=== PATIENT | female | born 1965 | race Caucasian/White ===

== ENCOUNTER 2016-07-07 11:27 | Emergency (ER) ==
[2016-07-07] MEDS ORDERED: DECADRON IM ONE (12:46)
--- NOTE | 2016-07-07 12:52 | PROVIDER DOCUMENTATION ---
HPI-Musculoskeletal Pain/Inj - GENERAL Chief Complaint: Extremity Pain Stated Complaint: NUMBNESS LEG Time Seen by Provider: 07/07/16 11:38 Source: patient - HX OF PRESENT ILLNESS-MUSKULOSKELTAL Nature of Presenting Problem: This pt, who has a hx of scoliosis and multilevel DDD, presents today c complaints of worsening low back pain and LLE numbness after a fall 2 days ago. She is currently seeing Dr. Stanley Kilpatrick in [place] and is scheduled for surgical repair of several lumbar spine problems. She states that she is still ambulating and denies any bowel or bladder dysfunction. She states that she just became concerned because the "tingling" feels a little "worse than usual." No other issues or complaints. Quality of Pain: reports: aching Severity in ED: moderate Onset/Duration: other (see hpi) Timing: still present Modifying Factors: improves with: movement Any recent injury?: Yes Similar Symptoms Previously?: Yes Recently seen or treated by another doctor?: Yes Review of Systems - Adult - REVIEW OF SYSTEMS - ADULT Constitutional: reports: no symptoms reported. denies: chills, fever Eyes: reports: no symptoms reported. denies: discharge, dry eyes Ears, Nose, Mouth & Throat: reports: no symptoms reported. denies: ear discharge, ear pain Cardiovascular: reports: no symptoms reported. denies: chest pain, edema Respiratory: reports: no symptoms reported. denies: chronic cough, cough Gastrointestinal: reports: no symptoms reported. denies: abdominal pain, hematemesis Genitourinary: reports: no symptoms reported. denies: dysuria, discharge Musculoskeletal: reports: see HPI, muscle aches. denies: bone pain, back pain Integumentary: reports: no symptoms reported. denies: hives, hair loss Neurological: reports: no symptoms reported. denies: ataxia, dizziness/vertigo Psychiatric: reports: no symptoms reported. denies: anxiety, anti-depressant use Endocrine: reports: no symptoms reported Hematologic/Lymphatic: reports: no symptoms reported Allergic/Immunologic: reports: no symptoms reported All Other Systems: Reviewed and Negative Past History - Adult - PAST MEDICAL HISTORY-ADULT Review of Records: reports: Old Records Reviewed, Nursing Assessment Review, Medications Reviewed, Social history reviewed & non-contributory. Major Childhood Illnesses: reports: denies history Cardiovascular: reports: palpitations Respiratory: reports: denies history Gastrointestinal: reports: denies history Obstetrical/Gynecological: reports: denies history Genitourinary: reports: denies history Musculoskeletal: reports: chronic pain, other (see hpi) Neurological: reports: denies history Endocrine/Immune: reports: denies history Other Conditions: reports: denies history - PRIOR SURGERIES/PROCEDURES Surgical/Procedure History: reports: hysterectomy - IMMUNIZATION STATUS Childhood Immunizations: See Nurse Assessment Flu Vaccine: See Nurse Assessment Physical Exam-Injury Related - Physical Exam-Injury Related Initial Vital Signs Reviewed: Yes General Appearance: appears well, alert, no apparent distress Eyes: PERRL/EOMI, pink conjunctivae Head, Ears, Nose, Mouth & Throat: normocephalic/atraumatic, normal ENT inspection, TMs normal, pharynx normal Neck: non-tender, full range of motion, supple, normal inspection Respiratory: chest non-tender, lungs clear, normal breath sounds, no pleuratic chest pain, no respiratory distress, no accessory muscle use Cardiovascular: normal peripheral pulses, regular rate, rhythm, no edema, no gallop, no JVD, no murmur Abdominal Exam: normal bowel sounds, non tender, soft, no organomegaly, no pulsatile mass Lymphatic: no adenopathy Back Exam: normal inspection, no vertebral tenderness, scoliosis, vertebral tenderness (lumbar) Extremity: normal range of motion, non-tender, normal gait, normal inspection, no pedal edema, no calf tenderness, normal capillary refill, pelvis stable Integumentary: normal color, warm/dry Neurologic: division order technician II-XII nml as tested, no motor/sensory deficits Psych/Mental Status: AL, normal mood/affect, normal thought content, normal thought process, oriented x 3 Progress - PLAN OF CARE/RESULTS Progress/Plan/Lab Results: Orders Category Date Time Status LUMBAR SPINE W/O CONTRAST [CT] Stat Exams 07/07/16 11:47 Taken XRAY PELVIS W/HIP 2-3VW LT [RAD] Stat Exams 07/07/16 11:47 Taken Dexamethasone [Decadron] Med 07/07/16 12:46 Discontinued 10 mg IM NOW ONE Vital Signs Temp Pulse Resp BP Pulse Ox 07/07/16 11:31 97.6 F 58 L 20 137/88 99 Sulfa (Sulfonamide Antibiotics) Allergy (Unknown, Verified 07/07/16 12:15) Unknown was told by mother she was allergic acetaminophen [From Lortab] Adverse Reaction (Mild, Verified 07/07/16 12:15) Unknown DOES NOT HELP CAN'T SLEEP hydrocodone bitartrate * [From Lortab] Adverse Reaction (Mild, Verified 12:15) Unknown DOES NOT HELP CAN'T SLEEP Baclofen [Lioresal] 10 mg PO QHS #0 tablet 03/05/12 Clonazepam [Klonopin] 0.5 mg PO BID #0 tab.rapdis 03/05/12 Tramadol HCl 50 mg PO BID PRN #0 tablet 03/05/12 Metoprolol Succinate E.r. [Toprol Xl] 50 mg PO DAILY #30 tablet 09/19/15 Tapentadol HCl [Nucynta] 50 mg PO DAILY 07/07/16 Will have pt f/u c Dr. Angel as scheduled. She is in agreement c this plan. - XRAY 1 XRAY: Left XRAY Study: Pelvis, Hip XRAY Interpretation: nad - CT/MRI 1 CT Study: Lumbar Spine Comparison with other Films: no changes (since 2014) CT Results: scoliosis and severe multilevel DDD; no acute findings Departure - Departure Time of Disposition Order: 12:50 DIAGNOSIS: Scoliosis Qualifiers: Scoliosis type: unspecified scoliosis Spinal region: lumbar Qualified Code(s): M41.9 - Scoliosis, unspecified Chronic low back pain with left-sided sciatica Qualifiers: Back pain laterality: left Qualified Code(s): M54.42 - Lumbago with sciatica, left side; G89.29 - Other chronic pain Disposition: HOME 01 Certified Medical Emergency: Emergent Condition: Good Additional Instructions: Take medication as prescribed. Follow up with Dr. Angel as scheduled. ED Follow Up Instructions: You have been treated by a care provider in the Emergency Department. These instructions are being provided to you so you can have an understanding of how to care for yourself upon discharge. Upon discharge from the Emergency Department, you are responsible for making arrangements for follow-up care by a physician of your choice. Take all prescribed medications as directed. Return to the Emergency Department immediately for any new or worsening symptoms. You may call the Physician Referral phone number at [phone] to obtain a list of Physicians who are taking new patients. Prescriptions: Cyclobenzaprine [Flexeril] 10 mg PO TID #20 tablet Referrals: Parminder Victor MD [Primary Care Provider] - Sebas Angel [NON-STAFF] - Attestation - Physician/ Mid-level Attestation Patient care was provided by Mid-level provider (WARP CLAMPER/PA):: Yes Mid-level provider:: Joni Srivastava Mid-level documentation review:: The Mid-level provider documentation, treatment plan and medical decision making was reviewed by the physician who agrees with all treatment and medical decision making by the MLP.
[2016-07-07 13:02] VITALS: BP 141/71
--- NOTE | 2016-07-07 13:26 | Diag Imaging Result Document ---
PROCEDURE NAME: LUMBAR SPINE W/O CONTRAST - 07/07/2016 CT LUMBAR SPINE WITHOUT CONTRAST: COMPARISON: Plain radiograph of the lumbar spine dated 06/06/2016 and MRI lumbar spine dated 05/16/2015. No prior lumbar spine CT is available for comparison. FINDINGS: Levoscoliosis is noted like the previous studies. There is loss of disk space height from L1-2 through L4-5. There is vacuum disk phenomenon at L3-4 and L4-5. There is extensive endplate degenerative sclerosis at L2-3 on the right where there is the most significant loss of disk space. There is facet arthropathy at several levels, most significant at L5-S1. There are bulging disk osteophyte complexes at several levels that are causing various degrees of central canal and neural foraminal narrowing. This appears to be most significant at L4-5 where there is severe central spinal stenosis. There is at least moderate central spinal stenosis at L3-4. However, these levels appear to be approximately stable as compared to the previous MRI in 2014. There is no evidence of fracture, subluxation, or intrinsic osseous lesion, otherwise. Surrounding soft tissues are essentially unremarkable. IMPRESSION: 1. Scoliosis and extensive degenerative change throughout the lumbar spine as detailed above that appears to be most significant at L4-5 where there is severe central spinal stenosis. However, these levels are very similar to the prior MRI in 2014. 2. No evidence of fracture or definite acute L-spine injury, otherwise.
--- NOTE | 2016-07-07 14:03 | Diag Imaging Result Document ---
PROCEDURE NAME: XRAY PELVIS W/HIP 2-3VW LT - 07/07/2016 PLAIN RADIOGRAPH OF THE PELVIS AND LEFT HIP, 2 VIEWS: COMPARISON: None available. FINDINGS: There is no discrete fracture, dislocation, or intrinsic osseous lesion. The visualized joint spaces are essentially unremarkable. The surrounding soft tissues are grossly unremarkable. IMPRESSION: No evidence of acute osseous abnormality.
== END 2016-07-07 13:10 | disposition home or self-care (01) ==
LOC: ED 11:27
DX: M54.42 Lumbago with sciatica, left side (principal); G89.29 Other chronic pain; M41.9 Scoliosis, unspecified; R20.0 Anesthesia of skin; M79.1 Myalgia; Z79.899 Other long term (current) drug therapy; W19.XXXA Unspecified fall, initial encounter
CPT/HCPCS: 72131; 96372